=== PATIENT | female | born 1985 | race American Indian/Alaskan Native ===

== ENCOUNTER 2019-04-03 16:41 | Inpatient (IN) | payer OTHER ==
[2019-04-03] MEDS ORDERED: PITOCin/NS 30 UNIT/500ML 30,000 MILLIUNITS/500 ML BAG IV ONE (18:03)
[2019-04-03] MEDS ORDERED: LACTATED RINGERS 1,000 ML IV SCH ×2 (19:00→21:00)
[2019-04-03] MEDS ORDERED: BRETHINE SUB-Q PRN (20:23)
[2019-04-03] MEDS ORDERED: MINERAL OIL PO PRN (20:23)
[2019-04-03] MEDS ORDERED: XYLOCAINE 2% INFILTRATI ONE (20:23)
[2019-04-03] MEDS ORDERED: STADOL IV PRN (20:23)
[2019-04-03] MEDS ORDERED: SUBLIMAZE IV PRN (20:23)
[2019-04-03] MEDS ORDERED: ZOFRAN IV PRN (20:23)
[2019-04-03] MEDS ORDERED: BRETHINE IVP PRN (20:23)
--- NOTE | 2019-04-03 20:30 | History and Physical Report ---
History of Present Illness Date of examination: 04/03/19 Chief complaint: Labor History of present illness: Pt is a 33yo BF EDC 03/28/19; EGA 40 6/7 weeks presents for pitocin augmentation of labor due to a Cat 2 tracing in Triage. She received late care at [facility] since 21 weeks and co-managed by [facility] for late care and sickle cell trait. course has been unremarkable, and today she denied contractions, ROM or bleeding, but was dilated 3 cm in the office today. records are available and GBS is negative. Past History Past Medical History: hematologic disorders (sickle cell trait) Past Surgical History: no surgical history Family/Genetic History: sickle cell/trait Social history: no significant social history, - Obstetrical History Expected Date of Delivery: 03/28/19 Actual Gestation: 41 Week(s) 0 Day(s) : 1 Medications and Allergies Allergies Allergy/AdvReac Type Severity Reaction Status Date / Time No Known Allergies Allergy Unverified 04/03/19 17:05 Home Medications Medication Instructions Recorded Confirmed Last Taken Type Vitamin 1 tab PO DAILY 04/03/19 04/03/19 Unknown History Active Meds: Active Medications Lactated Ringer's (Lactated Ringers) 1,000 mls @ 125 mls/hr IV DIRECT SAVI Oxytocin/Sodium Chloride (Pitocin/Ns 30 Unit/500ml) 30,000 milliunits in 500 mls @ 4 mls/hr IV DIRECT ONE; Protocol Stop: 04/08/19 23:02 Review of Systems All systems: negative - Vital Signs Vital signs: Vital Signs Temp Resp 98.3 F 18 04/03/19 17:11 04/03/19 17:11 Temp Pulse Resp BP Pulse Ox 98.3 F 69 18 122/80 04/03/19 17:11 04/03/19 19:21 04/03/19 17:11 04/03/19 19:21 - Physical Exam Breasts: Positive: deferred Cardiovascular: Regular rate Abdomen: Positive: normal appearance, soft Uterus: Positive: enlarged Extremities: Positive: normal - Obstetrical FHR: category 1 Uterine Contraction Monitor Mode: External Cervical Dilatation: 3.5 (per nurse) Cervical Effacement Percentage: 60 (per nurse) station: -2 Results Result Diagrams: 04/03/19 19:35 All other labs normal. Assessment and Plan - Patient Problems (1) 41 weeks gestation of Onset Date: 04/03/19 Current Visit: Yes Status: Acute Plan to address problem: A: IUP @ 40 6/7 weeks Cat 2 tracing - now improved P: Admit for pitocin augmentation of labor Expectant vaginal delivery
[2019-04-03] MEDS ORDERED: PITOCin/NS 30 UNIT/500ML 30 UNITS/500 ML BAG IV SCH ×2 (21:00)
[2019-04-03] MEDS ORDERED: PITOCin/NS 20 UNIT/1000ML DRIP 20 UNITS/1,000 ML BAG IV SCH (21:00)
[2019-04-03 21:01] LABS: Hematocrit 42.6 % (30.3-42.9); Hemoglobin 14.1 gm/dl (10.1-14.3); Mean Corpuscular HGB Conc 33 % (30-34); Mean Corpuscular Volume 80 fl (79-97); Platelet Count 274 K/mm3 (140-440); Red Blood Count 5.34 M/mm3 (3.65-5.03); Red Cell Distribution Width 16.7 % (13.2-15.2)
[2019-04-04] MEDS ORDERED: NARCAN 2 MG/2 ML IV PRN (09:23)
--- NOTE | 2019-04-04 09:24 | Anesthesia Day of Surgery ---
Anesthesia Day of Surgery - Day of Surgery Patient Examined: Yes Patient H&P Reviewed: Yes Patient is NPO: Yes Beta Blockers: No Cardiac Clearance: No Pulmonary Clearance: No Kaiser's Test: N/A
--- NOTE | 2019-04-04 09:24 | Anesthesia Consultation ---
Anesthesia Consult and Med Hx - Airway Anesthetic Teeth Evaluation: Good ROM Head & Neck: Adequate Mental/Hyoid Distance: Adequate Mallampati Class: Class I Intubation Access Assessment: Good - Pulmonary Exam CTA: Yes - Cardiac Exam Cardiac Exam: RRR - Pulmonary Hx Asthma: No COPD: No Hx Pneumonia: No - Cardiovascular System Hx Hypertension: No - Central Nervous System Hx Seizures: No Hx Psychiatric Problems: No - Endocrine Hx Renal Disease: No Hx End Stage Renal Disease: No Hx Hypothyroidism: No Hx Hyperthyroidism: No - Hematic Hx Anemia: No Hx Sickle Cell Disease: No - Other Systems Hx Alcohol Use: No
[2019-04-04] MEDS ORDERED: MARCAINE 0.25% INFILTRATI ONE ×2 (09:28→13:10)
[2019-04-04] MEDS ORDERED: fentaNYL-BUPIV 2 MCG/ML-0.125% 200 MCG/100 ML BAG EPIDURAL SCH (10:00)
[2019-04-04] MEDS ORDERED: BICITRA ONE (13:04)
[2019-04-04] MEDS ORDERED: BICITRA PO ONE (13:04)
[2019-04-04] MEDS ORDERED: PEPCID IV ONE ×2 (13:04→14:00)
[2019-04-04] MEDS ORDERED: REGLAN ONE (13:04)
[2019-04-04] MEDS ORDERED: SODIUM BICARBONATE IV ONE (13:17)
[2019-04-04] MEDS ORDERED: ZOFRAN ONE (13:18)
[2019-04-04] MEDS ORDERED: SUBLIMAZE ONE (13:18)
[2019-04-04] MEDS ORDERED: XYLOCAINE 2%/ EPI 1:200,000 INFILTRATI ONE (13:23)
[2019-04-04] MEDS ORDERED: NEO SYNEPHRINE/NS Syringe(OR USE) IV ONE (13:30)
[2019-04-04] MEDS ORDERED: NACL 0.9% IR ONE (13:42)
[2019-04-04] MEDS ORDERED: WATER FOR IRRIG STERILE IR ONE (13:42)
[2019-04-04] MEDS ORDERED: TORADOL ONE ×2 (13:47→13:54)
[2019-04-04] MEDS ORDERED: REGLAN IV ONE (14:00)
[2019-04-04] MEDS ORDERED: ANCEF/STERILE WATER 2 GM/20 ML 2 GM/20 ML SYRINGE IV NR (14:00)
[2019-04-04] MEDS ORDERED: PITOCin/NS 20 UNIT/1000ML DRIP 20 UNITS/1,000 ML BAG IV SCH ×2 (14:00→15:00)
[2019-04-04] MEDS ORDERED: LACTATED RINGERS 1,000 ML IV SCH (14:00)
[2019-04-04] MEDS ORDERED: TUCKS PAD TP PRN (14:26)
[2019-04-04] MEDS ORDERED: NARCAN 0.4 MG/1 ML IV PRN (14:26)
[2019-04-04] MEDS ORDERED: NORCO 5/325 PO PRN (14:26)
[2019-04-04] MEDS ORDERED: MILK OF MAGNESIA PO PRN (14:26)
[2019-04-04] MEDS ORDERED: TYLENOL PO PRN (14:26)
[2019-04-04] MEDS ORDERED: MYLICON PO PRN (14:26)
[2019-04-04] MEDS ORDERED: SENOKOT PO PRN (14:26)
[2019-04-04] MEDS ORDERED: PERCOCET 5/325 PO PRN (14:26)
[2019-04-04] MEDS ORDERED: LANSINOH TP PRN (14:26)
--- NOTE | 2019-04-04 14:38 | Operative Report ---
Operative Report Operative Report: Date of procedure: 04/04/2019 Pre-operative diagnosis: 1. Intrauterine at 41-1/7 weeks 2. Failu re to progress 3. Non-reassuring surveillance Post-operative diagnosis: Same Procedure name(s): Primary low transverse section Surgeon: Yunior Golden MD Computer Science Professor: None Anesthesia: Anesthesia by Tylor Golden CRNA EBL: 350 mls Findings: A 2876 g female Apgars for 1 minute 8 at 5 minutes. Clear amniotic fluid. Nuchal cord 1. Normal uterus. Normal tubes and ovaries bilaterally. Procedure: After the patient was prepped and draped in usual sterile fashion, and after satisfactory level of epidural anesthesia was obtained, the skin knife was used to make a transverse skin incision. The incision was excised down to layer of the fascia, which was nicked in the midline and extended laterally using the Bovie cautery. The rectus muscles were dissected off the rectus fascia both superiorly and inferiorly. The rectus bellies in the midline, and the peritoneum was entered under direct visualization. The peritoneal incision was extended superiorly and inferiorly. A bladder flap was created and the bladder blade was then placed. The uterus was scored in a curvilinear linear fashion, entered in the midline revealing clear amniotic fluid. The 's head was delivered onto the surgical field, nuchal cord 1 easily reduced and the oropharynx and nasopharynx were bulb suctioned. The rest of the 's body was delivered, cord was doubly clamped and cut and the was handed to the waiting respiratory team. Cord blood was then obtained. The placenta was manually removed from the uterus, and the uterus removed from its normal anatomical position. After gentle uterine lavage, the incision was inspected and found to be without extensions. It was then closed in 2 layers using 0 Vicryl suture in a running interlocking fashion, the second layer imbricating the first. After good hemostasis was achieved, copious amounts or irrigation was performed, and the gutters were suctioned free of blood and blood clots. Tisseel sealant was sprayed across the uterine incision. The uterus was then returned to its normal anatomical position, and after excellent hemostasis assured, the peritoneum was re-approximated using 3-0 Vicryl suture in a running interlocking fashion, and then the rectus muscles were re-approximated using 3-0 Vicryl suture in a [id number] configuration. The fascia was then re-approximated using 0 Vicryl suture in running interlocking fashion. The subcutaneous layer was made hemostatic using Bovie cautery, the Tisseel sealant was sprayed across the fascial incision and the skin edges re-approximated using 4-0 Vicryl suture in a sub-cuticular fashion. Patient tolerated the procedure well was transported to recovery in stable condition.
--- NOTE | 2019-04-04 14:45 | Post Anesthesia Evaluation ---
- Post Anesthesia Evaluation Patient Participated: Yes Airway Patent: Yes Stable Respiratory Function: Yes Nausea/Vomiting: No Temp > 96.8F: Yes Pain Manageable: Yes Adequeate Hydration: Yes Anesthesia Complications: No Block Receding Appropriately: Yes Patient on Ventilator: No
[2019-04-04] MEDS ORDERED: D5LR 1,000 ML IV SCH (15:00)
[2019-04-04] MEDS ORDERED: ANCEF/NS 1 GM/50 ML 1 GM/50 ML BAG IV SCH (15:00)
[2019-04-04] MEDS ORDERED: SODIUM CHLORIDE FLUSH SYRINGE 10 ML IV NR (15:00)
[2019-04-04] MEDS: TORADOL IV PRN (20:06)
[2019-04-04] MEDS: ANCEF/NS 1 GM/50 ML 1 GM/50 ML BAG IV SCH (23:37)
[2019-04-05] MEDS: TORADOL IV PRN (02:18)
[2019-04-05] MEDS: ANCEF/NS 1 GM/50 ML 1 GM/50 ML BAG IV SCH (06:24)
--- NOTE | 2019-04-05 10:08 | Progress Note ---
Assessment and Plan - Patient Problems (1) 41 weeks gestation of Onset Date: 04/03/19 Current Visit: Yes Status: Resolved (2) Status post section Onset Date: 04/05/19 Current Visit: Yes Status: Resolved Plan to address problem: A: S/P C Section - POD #1 Doing well Asymptomatic anemia - stable P: Continue RPOC Anticipate discharge in 24-48hrs (3) Acute blood loss anemia Onset Date: 04/05/19 Current Visit: Yes Status: Resolved Subjective - Subjective Date of service: 04/05/19 Principal diagnosis: s/p C Section - POD #1 Interval history: Pt is feeling well without complaints. Bleeding improved. Patient reports: appetite normal, voiding normally, pain well controlled, flatus, ambulating normally, no dizzy ambulation, no nauseated [place]: doing well, nursing well Objective - Vital Signs Latest vital signs: Vital Signs Temp Pulse Resp BP BP Pulse Ox 04/05/19 08:20 98.5 F 93 H 20 115/79 04/05/19 06:04 98.2 F 95 H 20 122/86 99 04/05/19 00:21 98.6 F 98 H 16 131/79 100 04/04/19 21:00 98.9 F 90 18 132/79 100 04/04/19 16:00 97.4 F L 64 18 125/66 100 04/04/19 15:40 98.4 F 64 16 11/62 99 04/04/19 15:26 60 15 111/72 99 04/04/19 15:15 65 16 115/62 99 04/04/19 15:00 66 15 110/60 99 04/04/19 14:50 64 16 103/62 99 04/04/19 14:45 64 18 103/60 99 04/04/19 14:40 98.1 F 69 16 103/63 99 04/04/19 13:02 80 100 04/04/19 12:57 75 100 04/04/19 12:52 69 100 04/04/19 12:51 67 120/73 04/04/19 12:46 87 100 04/04/19 12:45 87 89 04/04/19 12:41 76 100 04/04/19 12:36 80 100 04/04/19 12:33 81 84 04/04/19 12:31 67 100 04/04/19 12:26 71 100 06/22/19 12:21 69 123/68 100 04/04/19 12:16 72 100 04/04/19 12:11 68 100 04/04/19 12:06 75 135/74 100 04/04/19 12:05 83 92 04/04/19 12:00 67 100 04/04/19 11:58 90 88 04/04/19 11:55 74 100 04/04/19 11:51 62 88 04/04/19 11:50 74 100 04/04/19 11:45 70 100 04/04/19 11:40 71 100 04/04/19 11:36 76 123/78 04/04/19 11:35 74 100 04/04/19 11:30 69 100 04/04/19 11:25 75 100 04/04/19 11:20 70 119/79 100 04/04/19 11:15 76 100 04/04/19 11:10 73 100 04/04/19 11:06 70 120/82 04/04/19 11:05 72 100 04/04/19 11:02 73 122/81 04/04/19 11:00 86 98 04/04/19 10:55 84 97 04/04/19 10:52 93 H 81 L 04/04/19 10:51 83 117/70 04/04/19 10:50 73 32 L 04/04/19 10:46 82 88 04/04/19 10:45 79 100 04/04/19 10:40 74 100 04/04/19 10:37 67 82 L 04/04/19 10:35 74 100 04/04/19 10:30 76 98 04/04/19 10:25 80 100 04/04/19 10:23 64 46 L 04/04/19 10:22 79 121/71 04/04/19 10:20 76 100 04/04/19 10:15 78 100 04/04/19 10:10 74 100 Intake and Output 04/04/19 04/05/19 04/05/19 22:59 06:59 14:59 Intake Total 760 530 240 Output Total 800 1000 Balance -40 -470 240 Intake: IV 400 50 ANCEF/NS 1 GM/50 ML 1 gm 50 In 50 ml @ 100 mls/hr IV Q8H [facility] Rx#:[id number] Oral 360 240 Intake, Free Water 480 Output: Urine 800 1000 Indwelling Catheter 400 1000 Uretheral (Koch) 200 Other: Total, Intake Amount 240 240 Total, Output Amount 400 1000 - Exam Breasts: Present: deferred Abdomen: Present: normal appearance, soft Uterus: Present: normal, firm, fundal height below umbilicus Extremities: Present: normal Incision: Present: normal, dry, intact, dressed - Labs Labs: Laboratory Tests 04/03/19 04/03/19 04/03/19 19:35 19:35 19:35 WBC 8.5 RBC 5.34 H Hgb 14.1 Hct 42.6 MCV 80 MCH 26 L MCHC 33 RDW 16.7 H Plt Count 274 RPR Nonreactive Blood Type B POSITIVE Antibody Screen Negative 04/05/19 09:55 WBC RBC Hgb 11.1 D Hct 33.8 D MCV MCH MCHC RDW Plt Count RPR Blood Type Antibody Screen
[2019-04-05] MEDS: PRENATAL VITAMIN PO SCH (10:27)
[2019-04-05] MEDS: FEOSOL PO SCH (10:27)
[2019-04-05] MEDS: IBUPROFEN PO PRN ×2 (10:27→19:43)
[2019-04-05 10:50] LABS: Hematocrit 33.8 % (30.3-42.9); Hemoglobin 11.1 gm/dl (10.1-14.3)
[2019-04-05] MEDS ORDERED: M-M-R II VACCINE SUB-Q ONE (14:30)
[2019-04-05] MEDS ORDERED: BOOSTRIX IM ONE (14:30)
[2019-04-06] MEDS: IBUPROFEN PO PRN ×3 (00:34→23:28)
[2019-04-06] MEDS ORDERED: BOOSTRIX IM ONE (06:00)
--- NOTE | 2019-04-06 10:16 | Progress Note ---
Assessment and Plan - Patient Problems (1) 41 weeks gestation of Onset Date: 04/03/19 Current Visit: Yes Status: Resolved (2) Status post section Onset Date: 04/05/19 Current Visit: Yes Status: Resolved Plan to address problem: A: S/P C Section - POD #2 Doing well Asymptomatic anemia - stable P: May go home tomorrow. (3) Acute blood loss anemia Onset Date: 04/05/19 Current Visit: Yes Status: Resolved Subjective - Subjective Date of service: 04/06/19 Principal diagnosis: s/p C Section - POD #2 Interval history: Pt is feeling well without complaints. She is tolerating a reg diet without nausea or vomiting, ambulating and voiding without difficulty. Patient reports: appetite normal, voiding normally, pain well controlled, flatus, bowel movement, ambulating normally, no dizzy ambulation, no nauseated : doing well, nursing well Objective - Vital Signs Latest vital signs: Vital Signs Temp Pulse Resp BP BP Pulse Ox 04/05/19 23:47 98.1 F 65 18 121/79 100 04/05/19 16:30 98 F 80 20 128/83 04/05/19 12:10 98.2 F 90 20 119/70 Intake and Output 04/05/19 04/06/19 04/06/19 22:59 06:59 14:59 Intake Total 600 Output Total 3 1 Balance 597 -1 Intake: Oral 600 Output: Urine 3 1 Void 3 1 Other: Total, Intake Amount 240 Total, Output Amount 1 1 - Exam Breasts: Present: deferred Abdomen: Present: normal appearance, soft Uterus: Present: normal, firm, fundal height below umbilicus Extremities: Present: normal Incision: Present: normal, dry, intact
[2019-04-06] MEDS: FEOSOL PO SCH (10:24)
[2019-04-06] MEDS: PRENATAL VITAMIN PO SCH (10:24)
[2019-04-07] MEDS: IBUPROFEN PO PRN ×3 (05:56→17:36)
--- NOTE | 2019-04-07 08:56 | Discharge Summary ---
Providers - Providers Date of Admission: 04/04/19 13:34 Date of discharge: 04/07/19 Attending physician: ARLETTE DAY Primary care physician: ARLETTE DAY Hospitalization Reason for admission: active labor, IUP at term Delivery: Procedure: section, primary low transverse Episiotomy: none Laceration: none Incision: normal, dry, intact Other procedures: none complications: none Discharge diagnosis: IUP at term delivered [place] baby: female Hospital course: Pt is a 33yo BF EDC 03/28/19; EGA 40 6/7 weeks who presented for pitocin augmentation of labor due to a Cat 2 tracing in Triage. She received late care at [facility] since 21 weeks and co-managed by [facility] for late care and sickle cell trait. She was admitted and failed to progress in labor with a non-reassuring tracing, and therefore was delivered by an uncomplicated C Section. By POD #2 she was tolerating a reg diet without nausea or vomiting, ambulating and voiding without difficulty. She was therefore discharged to home on POD #3 in stable condition. Condition at discharge: Good Disposition: DC-01 TO HOME OR SELFCARE - Discharge Diagnoses (1) 41 weeks gestation of Status: Resolved (2) Status post section Status: Resolved (3) Acute blood loss anemia Status: Resolved Plan - Discharge Medications Prescriptions: Ferrous Sulfate [Feosol 325 MG tab] 325 mg PO BID #60 tablet Ibuprofen [Motrin 800 MG tab] 800 mg PO Q6H PRN #30 tablet PRN Reason: Pain, Mild (1-3) HYDROcodone/APAP 5-325 [Toone 5-325 mg TAB] 1 each PO Q6HR PRN #30 tablet PRN Reason: Pain, Moderate (4-6) Vit-Fe Fumar-FA [ Vitamin] 1 each PO QDAY #30 tablet - Provider Discharge Summary Activity: routine, no sex for 6 weeks, no heavy lifting 4 weeks, no strenuous exercise Diet: routine Instructions: routine Additional instructions: [] Smoking cessation referral if applicable(refer to patient education folder for contact #) [] Refer to [facility] Center Booklet Call your doctor immediately for: * Fever > 100.5 * Heavy vaginal bleeding ( >1 pad per hour) * Severe persistent headache * Shortness of breath * Reddened, hot, painful area to leg or breast * Drainage or odor from incision. * Keep incision clean and dry at all times and follow doctor's instructions regarding bathing/showering - Follow up plan Follow up: ARLETTE DAY MD [Primary Care Provider] - 14 Days JOSÉ LUIS CUEVAS CNM [Advanced Practice Nurse] - 14 Days Forms: Discharge Signature Page
[2019-04-07] MEDS: FEOSOL PO SCH (10:36)
[2019-04-07] MEDS: PRENATAL VITAMIN PO SCH (10:39)
[2019-04-07 18:07] VITALS: BP 125/70
== END 2019-04-07 20:20 | disposition home or self-care (01) | DRG 787 ==
LOC: TRG 16:41 → LD 16:53 → TRG 04-04 13:33 → LD 04-04 13:34 → OB 04-04 16:35
PROVIDERS: ADMIT Obstetrics & Gynecology; ATTEND Obstetrics & Gynecology
PROC: 10D00Z1 Extraction of Products of Conception, Low, Open Approach (ICD-10-PCS; principal; 2019-04-04)
DX: O69.81X0 Labor and delivery complicated by cord around neck, without compression, not applicable or unspecified (principal); D62 Acute posthemorrhagic anemia; O32.4XX0 Maternal care for high head at term, not applicable or unspecified; Z3A.41 41 weeks gestation of pregnancy; Z37.0 Single live birth; O76 Abnormality in fetal heart rate and rhythm complicating labor and delivery; O90.81 Anemia of the puerperium
CPT/HCPCS: 36415; 85014; 85018; 85027; 86592; 86850; 86900; 86901; 90471; 90715; G0378; A6250; C9250; J0595; J0690; J1885; J2370; J2405; J2590; J2765; J3010; J7120; J7121